=== PATIENT | female | born 1955 | race African-American/Black ===

== ENCOUNTER 2021-12-09 18:57 | Observation (INO) ==
[2021-12-09] MEDS ORDERED: hydrALAZINE 20 MG/1 ML VIAL IV STA (19:29)
[2021-12-09 19:30] LABS: Basophils % 0.3 % (0.0-0.8); Eosinophils # 0.2 10*3/uL (0.0-0.87); Eosinophils % 2.1 % (0.00-10.9); Hemoglobin 14.4 GM/DL (12.0-16.0); Immature Granulocytes % 0.8 %; Immature Granulocytes Absolute 0.08 #; Lymphocytes # 1.4 10*3/uL (1.4-4.0); Lymphocytes % 15.1 % (21.3-54.2); Mean Corpuscular HGB Conc 32.7 GM/DL (32-36); Mean Corpuscular Volume 88.7 FL (87-102); Mean Platelet Volume 9.6 FL (9.6-12.0); Monocytes # 0.6 10*3/uL (0.11-0.8); Monocytes % 6.6 % (1.7-12.7); Neutrophils % 75.1 % (38.7-73.9); Platelet Count 266 T/CUMM (130-400); Red Blood Count 4.96 MC/CUMM (3.8-5.5); Red Cell Distribution Width 14.3 % (9.3-17.3); White Blood Count 9.4 T/CUMM (4-12)
[2021-12-09 19:42] LABS: INR 1.7; PT Patient Result 18.5 SECS (10.1-12.1); Partial Thromboplastin Time 37.3 SECS (23.7-32.9)
[2021-12-09 19:58] LABS: Albumin 3.7 G/DL (3.4-5.0); Bilirubin,Total 0.5 MG/DL (0.20-1.00); Calcium 9.7 MG/DL (8.5-10.1); Osmolality,Calculated 286.4 MOS/KG (273-304); Potassium 3.9 MMOL/L (3.5-5.1); Total Protein 7.9 G/DL (6.4-8.2)
[2021-12-09 21:08] LABS: Bacteria,Urine Occasional /HPF (Few); Mucus,Urine Many /LPF (Occasional); RBC,Urine 26 /HPF (0-4); Squamous Epithelial Cell,Urine Occasional /HPF (0-10)
[2021-12-09 21:19] LABS: Urine Appearance Clear (Clear); Urine Color Yellow (Yellow); Urine pH 5.5 (4.5-8.0)
[2021-12-09 21:20] LABS: Glucose,Urine (UA) Negative (Negative); Ketones,Urine 15 mg/dL (Negative); Nitrite,Urine Negative (Negative); Protein,Urine 100 mg/dL (Negative)
[2021-12-09 21:21] LABS: Bilirubin,Urine Small mg/dL (Negative); Blood, Urine Negative (Negative); Urine Urobilinogen 0.2 eU/dL (<2.0)
[2021-12-09] MEDS ORDERED: FOSPHENYTOIN 1,000 MG.PE in SODIUM CHLORIDE 0.9% 250 ML IV STA (21:22)
[2021-12-09] MEDS ORDERED: PHENYTOIN INJ 1,000 MG in SODIUM CHLORIDE 0.9% 100 ML IV STA (21:30)
[2021-12-10] MEDS ORDERED: NICOTINE 21 MG/24 HR PATCH TRANSDERM PRN (00:07)
[2021-12-10] MEDS ORDERED: GLUCAGON 1 MG VIAL IM PRN (00:07)
[2021-12-10] MEDS ORDERED: ZALEPLON 5 MG CAPSULE PO PRN (00:07)
[2021-12-10] MEDS ORDERED: ALBUTEROL/IPRATROPIUM 3 ML NEB RESP TX PRN (00:07)
[2021-12-10] MEDS ORDERED: guaiFENesin/DM ER 600-30 MG TABLET PO PRN (00:07)
[2021-12-10] MEDS ORDERED: diphenhydrAMINE CAP 25 MG CAPSULE PO PRN (00:07)
[2021-12-10] MEDS ORDERED: ONDANSETRON 4 MG/2 ML VIAL IV PRN (00:07)
[2021-12-10] MEDS ORDERED: DEXTROSE 10% 250 ML BAG IV PRN (00:24)
[2021-12-10] MEDS: hydrALAZINE 20 MG/1 ML VIAL IV PRN ×2 (00:39→07:07)
[2021-12-10] MEDS: MORPHINE 2 MG/1 ML SYRINGE IV PRN (03:21)
[2021-12-10 03:32] LABS: Basophils % 0.2 % (0.0-0.8); Eosinophils % 0.2 % (0.00-10.9); Hematocrit 40.5 VOL% (35.7-47.0); Hemoglobin 13.7 GM/DL (12.0-16.0); Immature Granulocytes % 0.9 %; Immature Granulocytes Absolute 0.12 #; Lymphocytes # 1.5 10*3/uL (1.4-4.0); Lymphocytes % 10.7 % (21.3-54.2); Mean Corpuscular HGB Conc 33.8 GM/DL (32-36); Mean Corpuscular Volume 86.7 FL (87-102); Mean Platelet Volume 9.4 FL (9.6-12.0); Monocytes % 7.2 % (1.7-12.7); Neutrophils % 80.8 % (38.7-73.9); Platelet Count 274 T/CUMM (130-400); Red Blood Count 4.67 MC/CUMM (3.8-5.5); Red Cell Distribution Width 14.1 % (9.3-17.3); White Blood Count 13.7 T/CUMM (4-12)
[2021-12-10 04:11] LABS: Albumin 3.6 G/DL (3.4-5.0); Bilirubin,Total 0.6 MG/DL (0.20-1.00); Calcium 9.3 MG/DL (8.5-10.1); Osmolality,Calculated 292.8 MOS/KG (273-304); Potassium 3.6 MMOL/L (3.5-5.1)
[2021-12-10] MEDS: PANTOPRAZOLE 40 MG TABLET PO SCH (09:22)
[2021-12-10] MEDS: ENOXAPARIN 40 MG/0.4 ML SYRINGE SUBCUT SCH (09:22)
[2021-12-10] MEDS: BISACODYL 5 MG TABLET PO SCH (09:23)
[2021-12-10] MEDS: CLOPIDOGREL 75 MG TABLET PO SCH (09:23)
[2021-12-10] MEDS: hydrALAZINE 25 MG TABLET PO SCH ×3 (09:23→21:30)
[2021-12-10] MEDS: VALSARTAN 80 MG TABLET PO SCH (09:29)
[2021-12-10] MEDS: LABETALOL 100 MG TABLET PO SCH ×2 (11:19→21:30)
[2021-12-10] MEDS ORDERED: LORazepam 1 MG TABLET PO PRN (16:54)
[2021-12-10] MEDS: GABAPENTIN 300 MG CAPSULE PO SCH (17:21)
[2021-12-10] MEDS ORDERED: busPIRone 5 MG TABLET PO SCH (21:00)
[2021-12-10] MEDS ORDERED: PHENYTOIN 100 MG/4 ML UDCUP PO SCH ×2 (21:00)
[2021-12-10] MEDS ORDERED: TAMSULOSIN 0.4 MG CAPSULE PO SCH (21:00)
[2021-12-10] MEDS: BACLOFEN 10 MG TABLET PO SCH (21:30)
[2021-12-11 05:01] LABS: Basophils % 0.3 % (0.0-0.8); Eosinophils # 0.2 10*3/uL (0.0-0.87); Eosinophils % 2.1 % (0.00-10.9); Hematocrit 37.5 VOL% (35.7-47.0); Hemoglobin 12.4 GM/DL (12.0-16.0); Immature Granulocytes % 0.6 %; Immature Granulocytes Absolute 0.07 #; Lymphocytes # 2.2 10*3/uL (1.4-4.0); Lymphocytes % 20.1 % (21.3-54.2); Mean Corpuscular HGB Conc 33.1 GM/DL (32-36); Mean Corpuscular Volume 88.2 FL (87-102); Mean Platelet Volume 9.6 FL (9.6-12.0); Monocytes # 1.1 10*3/uL (0.11-0.8); Monocytes % 10.4 % (1.7-12.7); Neutrophils % 66.5 % (38.7-73.9); Platelet Count 222 T/CUMM (130-400); Red Blood Count 4.25 MC/CUMM (3.8-5.5); Red Cell Distribution Width 14.2 % (9.3-17.3); White Blood Count 10.8 T/CUMM (4-12)
[2021-12-11] MEDS: GABAPENTIN 300 MG CAPSULE PO SCH (05:17)
[2021-12-11 05:22] LABS: Calcium 9.4 MG/DL (8.5-10.1); Osmolality,Calculated 285.3 MOS/KG (273-304); Potassium 3.4 MMOL/L (3.5-5.1)
[2021-12-11] MEDS ORDERED: POTASSIUM CHLORIDE 20 MEQ TABLET PO ONE (08:00)
[2021-12-11] MEDS ORDERED: POLYETHYLENE GLYCOL POWDER 17 GM PACK PO SCH (09:00)
[2021-12-11] MEDS: BISACODYL 5 MG TABLET PO SCH (09:09)
[2021-12-11] MEDS: hydrALAZINE 25 MG TABLET PO SCH (09:09)
[2021-12-11] MEDS: CLOPIDOGREL 75 MG TABLET PO SCH (09:09)
[2021-12-11] MEDS: LABETALOL 100 MG TABLET PO SCH (09:09)
[2021-12-11] MEDS: PANTOPRAZOLE 40 MG TABLET PO SCH (09:09)
[2021-12-11] MEDS: BACLOFEN 10 MG TABLET PO SCH (09:09)
[2021-12-11] MEDS: VALSARTAN 80 MG TABLET PO SCH (09:09)
[2021-12-11] MEDS: ENOXAPARIN 40 MG/0.4 ML SYRINGE SUBCUT SCH (09:10)
[2021-12-11] MEDS: MORPHINE 2 MG/1 ML SYRINGE IV PRN (09:10)
[2021-12-11 10:28] VITALS: BP 130/71
== END 2021-12-11 14:50 ==
LOC: N.EDINP 18:57 → N.ED 18:57 → N.EDINP 12-10 08:19 → N.TELES 12-10 08:24
PROVIDERS: ADMIT Family Medicine; ATTEND Family Medicine